=== PATIENT | female | born 1945 | race Caucasian/White ===

== ENCOUNTER 2017-03-23 12:35 | Emergency (ER) | payer MEDICARE, OTHER ==
[2017-03-23] MEDS ORDERED: NORMAL SALINE 1000 ML 1,000 ML IV ONE (12:52)
--- NOTE | 2017-03-23 12:53 | ER Document Report ---
ED Medical Screen (RME) - General Chief Complaint: Nausea/Vomiting/Diarrhea Stated Complaint: VOMITING Time Seen by Provider: 03/23/17 12:51 - HPI Patient complains to provider of: nausea vomiting diarrhea Notes: 03/23/17 12:51 Patient with recurrent C. difficile infection coming in for nausea vomiting diarrhea dizziness. Currently is on Flagyl. - Related Data Allergies/Adverse Reactions: Penicillins Allergy (Verified 03/23/17 12:49) Past Medical History - Social History Chew tobacco use (# tins/day): No Frequency of alcohol use: None Drug Abuse: None Renal/ Medical History: Denies: Hx Peritoneal Dialysis Past Surgical History: Reports: Hx Gynecologic Surgery - Immunizations Hx Diphtheria, Pertussis, Tetanus Vaccination: No Review of Systems - Review of Systems Gastrointestinal: Diarrhea, Nausea, Vomiting Physical Exam - Vital signs Vitals: Temp Pulse Resp BP Pulse Ox 98.5 F 77 13 113/62 99 03/23/17 12:37 03/23/17 12:37 03/23/17 12:37 03/23/17 12:37 03/23/17 12:37 - General General appearance: Appears well - Abdominal Inspection: Normal Distension: No distension Bowel sounds: Normal Tenderness: Nontender Course - Re-evaluation Re-evalutation: 03/23/17 12:52 I have greeted and performed a rapid initial assessment of this patient. A comprehensive ED assessment and evaluation of the patient, analysis of test results and completion of the medical decision making process will be conducted by additional ED providers. - Vital Signs Vital signs: Temp Pulse Resp BP Pulse Ox 98.5 F 77 13 113/62 99 03/23/17 12:37 03/23/17 12:37 03/23/17 12:37 03/23/17 12:37 03/23/17 12:37
[2017-03-23 13:24] LABS: ABSOLUTE LYMPHOCYTES (AUTO) 1.4 10^3/uL (0.5-4.7); ABSOLUTE MONOCYTES (AUTO) 0.7 10^3/uL (0.1-1.4); ABSOLUTE NEUT (AUTO) 4.6 10^3/uL (1.7-8.2); BASOPHILS % (AUTO) 0.2 % (0-2); EOSINOPHILS % (AUTO) 0.2 % (0-6); HEMATOCRIT 35.5 % (36.0-47.0); HEMOGLOBIN 12.2 g/dL (12.0-15.5); HGB HCT DIFFERENCE 1.1; MEAN CORPUSCULAR HEMOGLOBIN 32.8 pg (27.0-33.4); MEAN CORPUSCULAR HGB CONC 34.3 g/dL (32.0-36.0); MEAN CORPUSCULAR VOLUME 96 fl (80-97); MONOCYTES % (AUTO) 10.6 % (3-13); RED BLOOD COUNT 3.71 10^6/uL (3.72-5.28); RED CELL DISTRIBUTION WIDTH 13.6 % (11.5-14.0); WHITE BLOOD COUNT 6.7 10^3/uL (4.0-10.5)
[2017-03-23 13:40] LABS: ANION GAP 10 (5-19); BLOOD UREA NITROGEN 19 mg/dL (7-20); CALCIUM 9.9 mg/dL (8.4-10.2); CARBON DIOXIDE 28 mmol/L (22-30); CHLORIDE 104 mmol/L (98-107); CREATININE RESULT 1.11 mg/dL (0.52-1.25); GLUCOSE 85 mg/dL (75-110); POTASSIUM 3.8 mmol/L (3.6-5.0); SODIUM 142.1 mmol/L (137-145)
[2017-03-23] MEDS ORDERED: ONDANSETRON HCL INJ/PF 4 MG/2 ML SDV IV ONE (14:03)
--- NOTE | 2017-03-23 14:23 | ER Document Report ---
ED GI/ - General Chief Complaint: Nausea/Vomiting/Diarrhea Stated Complaint: VOMITING Time Seen by Provider: 03/23/17 12:51 Notes: The patient is a 71-year-old female, past medical history C. difficile diagnosed last week, presents after she had an episode of nausea earlier today. She was started on Flagyl and antidiarrheal medications 5 days ago by her primary care physician for the C. diff and she says her diarrhea is improving. She denies fevers, abdominal pain, current nausea, vomiting, chest pain, shortness of breath, urinary symptoms or rash. - Related Data Allergies/Adverse Reactions: Penicillins Allergy (Verified 03/23/17 12:49) Past Medical History - General Information source: Patient - Social History Smoking Status: Never Smoker Chew tobacco use (# tins/day): No Frequency of alcohol use: None Drug Abuse: None Family History: Reviewed & Not Pertinent Renal/ Medical History: Denies: Hx Peritoneal Dialysis Past Surgical History: Reports: Hx Gynecologic Surgery - Immunizations Hx Diphtheria, Pertussis, Tetanus Vaccination: No Review of Systems - Review of Systems Notes: REVIEW OF SYSTEMS: CONSTITUTIONAL: -fevers, -chills EENT: -eye pain, -difficulty swallowing, -nasal congestion CARDIOVASCULAR:-chest pain, -syncope. RESPIRATORY: -cough, -SOB GASTROINTESTINAL: -abdominal pain, +nausea, -vomiting, +diarrhea GENITOURINARY: -dysuria, -hematuria MUSCULOSKELETAL: -back pain, -neck pain SKIN: -rash or skin lesions. HEMATOLOGIC: -easy bruising or bleeding. LYMPHATIC: -swollen, enlarged glands. NEUROLOGICAL: -altered mental status or loss of consciousness, -headache, - neurologic symptoms PSYCHIATRIC: -anxiety, -depression. ALL OTHER SYSTEMS REVIEWED AND NEGATIVE. Physical Exam - Vital signs Vitals: Temp Pulse Resp BP Pulse Ox 98.5 F 77 13 113/62 99 03/23/17 12:37 03/23/17 12:37 03/23/17 12:37 03/23/17 12:37 03/23/17 12:37 - Notes Notes: PHYSICAL EXAMINATION: GENERAL: Well-appearing, well-nourished and in no acute distress. HEAD: Atraumatic, normocephalic. EYES: Pupils equal round and reactive to light, extraocular movements intact, sclera anicteric, conjunctiva are normal. ENT: nares patent, oropharynx clear without exudates. Moist mucous membranes. NECK: Normal range of motion, supple without lymphadenopathy LUNGS: Breath sounds clear to auscultation bilaterally and equal. No wheezes rales or rhonchi. HEART: Regular rate and rhythm without murmurs ABDOMEN: Soft, nontender, normoactive bowel sounds. No guarding, no rebound. No masses appreciated. EXTREMITIES: Normal range of motion, no pitting or edema. No cyanosis. NEUROLOGICAL: Cranial nerves grossly intact. Normal speech, normal gait. Normal sensory, motor, and reflex exams. PSYCH: Normal mood, normal affect. SKIN: Warm, Dry, normal turgor, no rashes or lesions noted. Course - Re-evaluation Re-evalutation: Patient appears very well. No current nausea and her labs are unremarkable. No fevers and has not had any diarrhea episodes in the emergency room. Instructed her to continue her Flagyl and antidiarrhea medications prescribed to her by her primary care physician. - Vital Signs Vital signs: Temp Pulse Resp BP Pulse Ox 98.6 F 78 16 120/66 100 03/23/17 14:45 03/23/17 14:45 03/23/17 14:45 03/23/17 14:45 03/23/17 14:45 - Laboratory Result Diagrams: 03/23/17 13:10 03/23/17 13:10 Laboratory results interpreted by me: 03/23/17 03/23/17 13:10 13:10 RBC 3.71 L Hct 35.5 L Est GFR ( Amer) 58 L Est GFR (Non-Af Amer) 48 L Discharge - Discharge Clinical Impression: Nausea Condition: Good Disposition: HOME, SELF-CARE Additional Instructions: Drink plenty of fluids. You may take Zofran to help with any nausea. Continue the Flagyl. Return to the ER if he notes any worsening symptoms or any other concerns. VOMITING: Vomiting (or nausea without vomiting) can be caused by many other different problems. It can mean that something's wrong with the stomach, such as ulcers or inflammation or the intestinal tract, such as appendicitis. But it can also be a symptom of a problem that has nothing to do with the stomach or intestines. Vomiting is common with severe headaches, earaches, tonsillitis, and kidney infections, etc. We see it with pneumonia or heart attacks. Drugs can cause nausea and vomiting. Many abdominal problems cause vomiting; for example, gallstones, kidney stones, pancreatitis, and intestinal obstruction ( blocked bowels). In most cases, curing the vomiting depends on fixing the problem that caused it. For temporary relief, we may use an anti-nausea medicine. For home use, we can prescribe suppositories, chewable pills, pills that dissolve in the mouth, or liquid anti-nausea drugs. If the vomiting seems to be caused by a problem in the stomach, acid-suppressing drugs may be prescribed as well. It's important to avoid dehydration. Sip small amounts of clear liquids ( soft drinks, tea, broth, etc) . Try to take fluids frequently even if you are vomiting to prevent dehydration. Take increasing amounts of fluid and when liquids are being consumed successfully, advance to small amounts of bland food (toast, soups, mashed potatoes, etc.) until you are able to resume a regular diet. Avoid aspirin, tobacco, and alcohol. If the vomiting worsens, if the problem that's making you vomit worsens, or if there's evidence of bleeding in the stomach (such as black, tarry stool, or bloody or black vomit), you should return immediately. Also, return if abdominal pain worsens or becomes localized to one area or you develop high fever. Call your doctor if you aren't improved in 24 hours. DIARRHEA, NON-SPECIFIC: Diarrhea means frequent, watery stools. There are many causes. Any problem that keeps the intestinal tract from absorbing water from the stool can lead to diarrhea. A sudden new diarrhea problem is usually caused by a virus, food sensitivity, toxic bacteria, or drugs. In this case, we expect the problem to go away soon. Testing is done only if you seem seriously ill from the diarrhea. If you have chronic diarrhea, or diarrhea that keeps coming back, we need to find out why. Chronic diarrhea can be due to inflammation of the bowels such as Crohn's disease or ulcerative colitis, food sensitivity such as intolerance to lactose or wheat protein, irritable bowel syndrome, and other problems. If your diarrhea is a significant problem but it's not clear why you have it, we' ll refer you to a specialist for further testing. During an episode of diarrhea, drink small amounts (two to six ounces) of clear liquids (soft drinks, sport drinks, herb teas, broth, etc). Take fluids frequently to prevent dehydration. It's usually not a problem to take mild anti- diarrhea medication such as Kaopectate or Pepto-Bismol. As the diarrhea eases, advance to small amounts of bland food (mashed potato, toast) for 24 hours. Call the physician if blood appears in your vomit or stool, if vomiting lasts longer than 24 hours, if the abdominal pain worsens or becomes localized to one area, if you develop high fever, or if you become lightheaded and weak. INTRAVENOUS (I V) FLUIDS: As part of your care today, you received intravenous (IV) fluids. IV fluids are administered to patients who are dehydrated or to those who have certain chemical (electrolyte) abnormalities that need correcting. ANTINAUSEA MEDICATION: You have been given a medication to suppress nausea and vomiting. This type of medication can be given as a shot, pill, or suppository. It will usually last for many hours. Pills and shots usually last six to eight hours. For the typical illness, only one or two doses of the medication may be necessary. Mild lightheadedness may occur. This type of medicine can cause drowsiness. Do not drive or operate dangerous machinery while under its influence. Do not mix with alcohol. See your doctor at once if you have muscle spasms or tightness, or uncontrollable motions (particularly of the neck, mouth, or jaw). Persistent vomiting or severe lightheadedness should also be evaluated by the physician. PRESCRIBED ANTIDIARRHEAL MEDICATION: Your doctor has prescribed antidiarrhea medication for you. While the usual treatment for diarrhea is a clear liquid diet to rest the bowels, an antidiarrheal medicine may allow you to be more active and comfortable while you recover. This medication can make you drowsy. Do not drive or operate machinery while under its influence. Do not combine with alcohol. Prescription antidiarrhea medicine can cause dry mouth. Occasionally, it can make you unable to pass your urine. Do not exceed the prescribed dosage. Severe abdominal pains, lightheadedness, bloody stool, or fever indicate that your disease is worsening. If these occur, stop the medication and see your doctor at once. FOLLOW-UP CARE: If you have been referred to a physician for follow-up care, call the physician s office for an appointment as you were instructed or within the next two days. If you experience worsening or a significant change in your symptoms, notify the physician immediately or return to the Emergency Department at any time for re-evaluation. Prescriptions: Ondansetron [Zofran Odt 4 mg Tablet] 1 - 2 tab PO Q4H PRN #10 tab.rapdis PRN Reason: For Nausea/Vomiting
[2017-03-23 15:07] VITALS: BP 120/66
== END 2017-03-23 14:45 | disposition home or self-care (01) ==
LOC: ER 12:35
DX: A04.7 Enterocolitis due to Clostridium difficile (principal); R11.0 Nausea; Z88.0 Allergy status to penicillin
CPT/HCPCS: 99283; 96360; 36415; 85025; 80048; J7030